=== PATIENT | female | born 1975 | race Caucasian/White ===

== ENCOUNTER 2024-01-05 18:07 | Emergency (ER) | payer OTHER ==
[2024-01-05] MEDS: Acetaminophen/oxyCODONE 325-5 MG Tab PO ONE (19:04)
[2024-01-05] MEDS: Take Home: Acetaminophen/oxyCODONE 325-5 MG, 2 Tab Pack PO ONE (19:45)
== END 2024-01-05 19:28 | disposition home or self-care (01) ==
LOC: CC.ED 18:07
DX: M25.511 Pain in right shoulder (principal); K21.9 Gastro-esophageal reflux disease without esophagitis; Z86.16 Personal history of COVID-19; Z79.899 Other long term (current) drug therapy; Z88.8 Allergy status to other drugs, medicaments and biological substances
CPT/HCPCS: 73030; 99283; A9270

== ENCOUNTER 2025-02-18 16:58 | Emergency (ER) | payer BC ==
[2025-02-18] MEDS: Ondansetron 4 MG Tab.DIS PO ONE (17:45)
[2025-02-18] MEDS: Diphtheria,Pertussis(Acell),Tetanus Vaccine 0.5 ML Syringe IM ONE (18:01)
[2025-02-18] MEDS: Bacitracin Oint 1 GM U/D Packet TOP ONE (18:01)
== END 2025-02-18 18:22 | disposition home or self-care (01) ==
LOC: CC.ED 16:58
DX: S61.211A Laceration without foreign body of left index finger without damage to nail, initial encounter (principal); K21.9 Gastro-esophageal reflux disease without esophagitis; Z23 Encounter for immunization; Z79.899 Other long term (current) drug therapy; W26.8XXA Contact with other sharp object(s), not elsewhere classified, initial encounter; Y93.89 Activity, other specified
CPT/HCPCS: 12001; 90471; 90715; 99282-25; 99283; A9270-GY; J2003